=== PATIENT | male | born 1995 | race Caucasian/White ===

== ENCOUNTER 2018-10-31 01:55 | Emergency (ER) | payer OTHER, SELFPAY ==
[~2018-10-31] VITALS: Ht 188 cm; Wt 113.6 kg
[2018-10-31] MEDS ORDERED: MORPHINE 10 MG/ML 1ML VIAL (J2270) IM ONE (03:30)
[2018-10-31] MEDS ORDERED: PERCOCET 5MG/325MG TAB PO ONE (04:30)
[2018-10-31] MEDS ORDERED: CEPHALEXIN 500 MG CAP PO ONE (04:45)
[2018-10-31] MEDS ORDERED: OXYCODONE/APAP 5MG/325MG(BULK FOR ED) 1 TABLET PO ONE (04:45)
[2018-10-31] MEDS ORDERED: KEFL500C17 PO (04:48)
[2018-10-31] MEDS ORDERED: PERC5TAB12 PO (04:48)
[2018-10-31 05:19] VITALS: BP 138/73
--- NOTE | 2018-10-31 08:58 | REP ---
Right knee series: Five views. History: Swelling, pain, reduced range of motion. Findings: Five views of the right knee demonstrate soft tissue swelling medially. There is no evidence of fracture, subluxation or joint effusion. There is prepatellar soft-tissue swelling as well. Impression: Anteromedial soft tissue swelling. No fracture seen. Electronically Signed by Dakota Raza MD 10/31/2018 08:50 A
== END 2018-10-31 05:20 | disposition home or self-care (01) ==
LOC: M ED 01:55
DX: S80.211A Abrasion, right knee, initial encounter (principal); S41.121A Laceration with foreign body of right upper arm, initial encounter; V86.56XA Driver of dirt bike or motor/cross bike injured in nontraffic accident, initial encounter; Y92.828 Other wilderness area as the place of occurrence of the external cause; Y93.9 Activity, unspecified; Y99.9 Unspecified external cause status; M79.89 Other specified soft tissue disorders; Z87.891 Personal history of nicotine dependence
CPT/HCPCS: 73564; 96372; 99284; J2270

== ENCOUNTER → 2018-11-19 | Outpatient (CLI) | payer OTHER ==
[~2018-11-19] MED LIST: KEFL500C17 PO; PERC5TAB12 PO
--- NOTE | 2018-11-19 15:18 | REP ---
Clinical: Laceration. Technique: AP and lateral views of the right elbow. Findings: Lateral view demonstrates small amount of foreign body material in the subcutaneous tissues underlying the proximal ulna and correlation is recommended. No acute fracture or dislocation appreciated. Impression: Small amount of foreign body material in the subcutaneous tissues cannot be excluded. Electronically Signed by Juliocesar Fulton MD 11/19/2018 03:09 P
== END ==
LOC: M RAD 14:49
PROVIDERS: ATTEND Surgery
DX: S51.011A Laceration without foreign body of right elbow, initial encounter (principal)